=== PATIENT | male | born 1990 | race Two or more races ===

== ENCOUNTER 2024-07-29 20:22 | Emergency (ER) | payer MEDICAID, SELFPAY ==
[2024-07-29 20:23] VITALS: BMI 29.3
--- NOTE | 2024-07-29 20:31 | XR_ITS ---
Examination: PA chest single view TECHNIQUE: Upright PA chest single view Examination date and time: July 29, 2024 1935 hours INDICATIONS: Coughing and fever today FINDINGS: Normal heart size Lungs are clear. The osseous structures are intact IMPRESSION: No active disease
--- NOTE | 2024-07-29 20:52 | EDNOTE_ITS ---
Upper Respiratory Inf. RME/HPI General Chief Complaint: Flu Like Symptoms Stated Complaint: COUGH/ FEVER X 3DAYS Time Seen by Provider: 07/29/24 20:40 Arrival date/time: 07/29/24 20:22 RME / HPI RME / HPI Narrative: This section includes all my notes and documentations, including HPI, PE, and ED course. Rogerio Real MD HPI: 34-year-old male here with about a week history of worsening cough, productive cough, purulent sputum, and dyspnea. No other complaints. ROS: All negative except as documented in HPI. Physical Exam: General: Alert and oriented. Hacking cough noted. Eyes: Conjunctivae and lids clear. ENT: No nasal congestion. Pharynx normal. TM normal bilaterally. Neck: Supple. Heart: RRR. Lungs: No respiratory distress. Good air movement with bilateral rhonchi. Skin: Warm and dry. Neuro: Alert and oriented X 3. I reviewed all diagnostic test results. My interpretation of the chest x-ray is increased bronchial markings. COVID/influenza negative. At this point, diagnoses include low respiratory infection. Treatment here included prednisone and Zithromax and two Tylenol #3. Significant improvement noted. Recommended a trial of outpatient treatment. Based on my best medical judgment, made decision no further evaluation or treatment indicated at this time. Patient understands and agrees to the discharge instructions customized and printed, see below. Discharge instructions from Dr. Real: --No physical exertion for 3 days to help rest the lungs. ?No smoking or exposure to smoking or pets or dust or cold air. --Zithromax to kill the germs causing the bronchitis. --Prednisone to help decrease the swelling in the airways. --Albuterol 2 puffs every 4-6 hours for 3 days to help keep the airways open. Then as needed for cough or shortness of breath. --Tylenol codeine for severe cough for severe pain. --See a private doctor on 08/03/2024 if not completely better. --Seek immediate medical care with worsening or with any concerns. Rogerio Real MD Related Data Previous Rx's ?Medication ?Instructions ?Recorded albuterol sulfate 90 mcg/actuation 2 puff inhalation Q 6HR PRN 11/09/16 aerosol inhaler (ProAir HFA) WHEEZING #1 inh acetaminophen 300 mg-codeine 30 mg 2 tab PO Q8H PRN pa in #20 tabs 07/29/24 tablet albuterol sulfate 90 mcg/actuation 2 puff inhalation Q 6H PRN 07/29/24 aerosol inhaler shortness of breath or wheez ing #8.5 grams azithromycin 500 mg tablet 500 mg PO QDAY 3 days #3 ta bs 07/29/24 (Zithromax TRI-ISIDORO) prednisone 20 mg tablet 40 mg PO BID 3 days #12 tabs 07/29/24 Allergies Allergy/AdvReac Type Severity Reaction Status Date / Time NKA* Allergy Uncoded 11/24/11 15:42 Course Quality Measures none Orders Category Date Time Status Bedside COVID-19 Antigen Test NOW Care 07/29/24 20:31 Completed Bedside Influenza A&B Antigen Test NOW Care 07/29/24 20:31 Completed XR chest 1V portable Stat Exams 07/29/24 20:31 Completed ACETAMINOPHEN w/COD 300-30 [Tylenol w/Cod #3] Med 07/29/24 20:31 Discontinued 2 tab PO X1 ONE Azithromycin Po [Zithromax PO] Med 07/29/24 22:00 Discontinued 500 mg PO X1 ONE predniSONE Med 07/29/24 20:31 Discontinued 60 mg PO X1 ONE Vital Signs Vital signs: Vital Signs Temperature 99.3 F 07/29/24 22:07 Pulse Rate 100 07/29/24 22:07 Respiratory Rate 17 07/29/24 22:07 Blood Pressure 121/67 07/29/24 22:07 Pulse Oximetry (%) 97 07/29/24 22:07 Oxygen Delivery Method Room Air 07/29/24 22:07 Upper Respiratory Infection Patient data External records reviewed:: [facility] previous records Clinical information provided by:: patient Social determinants that could affect healthcare access:: none Patient has the following chronic illnesses:: Asthma How is presenting disease/condition affected by chronic disease/condition?: exacerbated by Evaluation data The following diagnostics were reviewed and interpreted by me:: lab results and radiology exam(s) Lab and/or radiology exams considered but not ordered:: None Interpretation Summary: Lower respiratory infection Medications / Prescriptions Medications or Prescriptions considered but not ordered:: None Medication administrations:: Medication Administration History Discontinued Medications Acetaminophen/Codeine Phosphate (Acetaminophen W/Cod 300-30 Tablet) 2 tab PO X1 ONE Stop: 07/29/24 20:32 Last Admin: 07/29/24 21:01 Dose: 2 tab Documented By: ELIUD Azithromycin (Azithromycin 250 Mg Tablet) 500 mg PO X1 ONE Stop: 07/29/24 22:01 Last Admin: 07/29/24 22:25 Dose: 500 mg Documented By: ELIUD Prednisone (Prednisone 20 Mg Tablet) 60 mg PO X1 ONE Stop: 07/29/24 20:32 Last Admin: 07/29/24 21:02 Dose: 60 mg Documented By: ELIUD Prednisone and Zithromax and two Tylenol #3 Consultations Consultation(s) initiated? (list below): No Diagnosis Upper Respiratory Differential Diagnosis: upper respiratory infection, croup, otitis media, sinusitis, viral infection, bronchitis, influenza and pharyngitis Most likely diagnosis given after review of the tests above:: Lower respiratory infection Admission Indicated Admission indicated?: not indicated Explain why admission is indicated or not indicated:: There was no indication for admission. Admission Request Was there a request for admission?: No Disposition Plan Disposition Plan: Discharge Discharge Attestation Discharge Attestation: The patient and all family members were given an opportunity to ask questions and understood the discharge instructions. Discharge instructions specifically effects, indications for sooner follow up or return to the emergency department, and the expected course of current diagnosis. Patient condition: Stable Discharge Plan Plan Patient Disposition: HOME (Self Care) Prescriptions/Referrals Prescriptions/Med Rec: New prednisone 20 mg tablet 40 mg PO BID 3 Days Qty: 12 0RF Taper: Prednisone Taper 20 mg DAILY for 2 Days and 0 Hour 10 mg DAILY for 2 Days and 0 Hour 5 mg DAILY for 7 Days and 0 Hour acetaminophen-codeine 300-30 mg tablet 2 tab PO Q8H MDD 6 PRN (Reason: pain) Qty: 20 0RF albuterol sulfate 90 mcg/actuation HFA aerosol inhaler 2 puff inhalation Q6H PRN (Reason: shortness of breath or wheezing) Qty: 8.5 0RF azithromycin [Zithromax TRI-ISIDORO] 500 mg tablet 500 mg PO QDAY 3 Days Qty: 3 0RF No Action albuterol sulfate [ProAir HFA] 8.5 GM HFA aerosol inhaler 2 puff Inhalation Q6HR PRN (Reason: WHEEZING) Qty: 1 0RF Referrals: Temporary Provider,ED [Physician] - In 1 week Problem List Clinical Impression: Lower respiratory infection Patient/Caregiver Discharge Instructions Discharge Activity: activity as tolerated Education Materials: ED Bronchitis with Wheezing (Adult) Additional Instructions: Discharge instructions from Dr. Real: --No physical exertion for 3 days to help rest the lungs. ?No smoking or exposure to smoking or pets or dust or cold air. --Zithromax to kill the germs causing the bronchitis. --Prednisone to help decrease the swelling in the airways. --Albuterol 2 puffs every 4-6 hours for 3 days to help keep the airways open. Then as needed for cough or shortness of breath. --Tylenol codeine for severe cough for severe pain. --See a private doctor on 08/03/2024 if not completely better. --Seek immediate medical care with worsening or with any concerns. Instrucciones de madai del Dr. Real: -- No realice esfuerzo f?sico jamel 3 d?as para ayudar a los pulmones a descansar. -- No fume ni se exponga al humo, a las mascotas, al polvo ni al aire fr?o. -- Zitromax para eliminar los g?rmenes que causan la bronquitis. -- Prednisona para ayudar a disminuir la inflamaci?n de las v?as respiratorias. -- Albuterol: 2 inhalaciones cada 4-6 horas jamel 3 d?as para ayudar a mantener las v?as respiratorias abiertas. Posteriormente, seg?n sea necesario, para la tos o la dificultad para respirar. -- Tylenol con code?na para la tos intensa o el dolor intenso. -- Consulte a un m?dico particular el 03/08/2024 si no mejora por completo. -- Busque atenci?n m?dica inmediata si la enfermedad empeora o tiene alguna inquietud. Print Language: Icelandic Stand Alone Forms: Allie Award Info., Patient Portal Info Letter
[2024-07-29] MEDS: ACETAMINOPHEN w/COD 300-30 TABLET 2 TAB PO (21:01)
[2024-07-29] MEDS: predniSONE 20 MG TABLET 60 MG PO (21:02)
[2024-07-29 22:07] VITALS: BP 121/67; PULSE 100; RESP 17; TEMP 37.4; O2SAT 97
[2024-07-29 22:24] VITALS: BP 122/76; PULSE 80; RESP 18; TEMP 37; O2SAT 98
[2024-07-29] MEDS: AZITHROMYCIN 250 MG TABLET 500 MG PO (22:25)
== END 2024-07-29 22:26 | disposition home or self-care (01) ==
PROVIDERS: Emergency Provider Emergency Medicine
DX: J22 Unspecified acute lower respiratory infection (principal)
CPT/HCPCS: 71045; 87400; 87811; 99283; J7512; A9270

== ENCOUNTER 2025-04-09 19:20 | Emergency (ER) | payer SELFPAY ==
[2025-04-09 20:45] VITALS: BP 134/81; PULSE 107; RESP 19; TEMP 37.4; O2SAT 98
--- NOTE | 2025-04-09 21:03 | XR_ITS ---
EXAMINATION: PA chest single view TECHNIQUE: Upright PA chest single view Date and time: April 09, 2025, 2126 hours INDICATIONS: Coughing fever 5 days. FINDINGS: Normal heart size Lungs are clear. Osseous structures intact IMPRESSION: No active disease
[2025-04-09 22:02] LABS: Collection Type, Urine Voided; Squamous Epithelial Cell,Urine 0 /hpf (0-5)
[2025-04-09 22:10] LABS: Bilirubin,Urine Negative (Negative); Blood,Urine Negative (Negative); Clarity,Urine Clear (Clear/Hazy); Color,Urine Lt-Yellow (Lt Yel-Yel); Glucose, Urine Negative (Negative); Ketones,Urine Negative (Negative); Leukocyte Esterase,Urine Negative (Negative); Nitrite,Urine Negative (Negative); PH,Urine 6.0 (5.0-7.0); Protein,Urine Negative (Neg - Trace); RBC,Urine 1 /hpf (0-3); Specific Gravity,Urine 1.025 (1.001-1.035); Urobilinogen,Urine Negative mg/dL (0.0-1.0); WBC,Urine < 1 /hpf (0-5)
[2025-04-09 22:26] LABS: Influenza A Ag Positive; Influenza B Ag Negative; Strep A Rapid Negative (Negative)
[2025-04-09 22:27] LABS: COVID-19 Antigen (In-House) Negative (Negative)
--- NOTE | 2025-04-09 23:20 | PD.EDURI ---
Upper Respiratory Inf. RME/HPI General Chief Complaint: Flu Like Symptoms Stated Complaint: COUGHING,RUNNY NOSE,FEVER Time Seen by Provider: 04/09/25 19:27 Arrival date/time: 04/09/25 19:20 This is a case of 34-year-old male with history of asthma came in in the emergency room due to cough sore throat nasal congestion and fever for 5 days worsening of the symptoms now with shortness of breath and wheezing no chest pain thus patient decided to sought consult here in the emergency room Limitations: no limitations Related Data Previous Rx's ?Medication ?Instructions ?Recorded albuterol sulfate 90 mcg/actuation 2 puff inhalation Q6HR PRN 11/09/16 aerosol inhaler (ProAir HFA) WHEEZING #1 inh acetaminophen 300 mg-codeine 30 mg 2 tab PO Q8H PRN pain #20 tabs 07/29/24 tablet albuterol sulfate 90 mcg/actuation 2 puff inhalation Q6H PRN 07/29/24 aerosol inhaler shortness of breath or wheezing #8.5 grams albuterol sulfate 90 mcg/actuation 1 puff inhalation Q4H PRN 04/09/25 aerosol inhaler (Ventolin HFA) shortness of breath or wheezing #8.5 grams azithromycin 250 mg tablet See Rx Instructions PO .COMPLEX #6 04/09/25 tabs codeine 10 mg-guaifenesin 100 mg/5 5 ml PO Q6H PRN cough #120 mL 04/09/25 mL oral liquid (Guaifenesin AC) prednisone 20 mg tablet See Taper PO QDAY 5 days #5 tabs 04/09/25 Allergies Allergy/AdvReac Type Severity Reaction Status Date / Time No Known Allergies Allergy Verified 04/09/25 19:21 Review of Systems Review of Systems Systems Reviewed: All systems reviewed, normal except as documented Constitutional Constitutional: Reports system reviewed and no additional complaints, except as documented and Reports as per HPI ENT Ears, Nose, Mouth, and Throat: Reports system reviewed and no additional complaints, except as documented and Reports as per HPI Cardiovascular Cardiovascular: Reports system reviewed and no additional complaints, except as documented and Reports as per HPI Respiratory Respiratory: Reports system reviewed and no additional complaints, except as documented and Reports as per HPI Gastrointestinal Gastrointestinal: Reports system reviewed and no additional complaints, except as documented and Reports as per HPI Neurologic Neurologic: Reports system reviewed and no additional complaints, except as documented and Reports as per HPI Past Medical History Past Medical History CARDIAC: Negative Congestive Heart Failure RESPIRATORY: Negative Chronic Obstructive Pulmonary Disease (COPD) GENITOURINARY: Negative Renal Disease ENDOCRINE: Negative Diabetes Mellitus Type 1 or Diabetes Mellitus Type 2 Social History SMOKING STATUS: Never smoker ED Exam General Limitations: Present no limitations General appearance: Present alert, in no apparent distress and other (Patient is awake alert oriented not in distress nontoxic looking well-hydrated well noursihed) Head Head exam: Present atraumatic, normocephalic and normal inspection Eye Eye exam: Present normal appearance, PERRL and EOMI ENT ENT exam: Present normal exam, normal oropharynx, mucous membranes moist and other (Bilateral tonsils swollen red with exudate but no peritonsillar abscess no drooling of saliva no hoarseness of the voice the rest of the HEENT exam is normal ) Neck Neck exam: Present normal inspection, full ROM, trachea midline and other (Negative for meningeal sign); Absent tenderness, meningismus, lymphadenopathy or thyromegaly Chest Chest inspection: Present normal inspection and symmetric chest wall rise; Absent tenderness Respiratory Respiratory exam: Present normal lung sounds bilaterally and wheezes (Wheezing both lower lung field no crackles no rales no retraction no stridor); Absent respiratory distress, stridor, accessory muscle use or prolonged expiratory phase Cardiovascular Cardiovascular exam: Present regular rate, normal rhythm and normal heart sounds; Absent bradycardia, tachycardia, irregular rhythm, systolic murmur or diastolic murmur Abdominal Exam Abdominal exam: Present soft and normal bowel sounds; Absent distention, tenderness, guarding, rebound, rigidity, diminished bowel sounds, hyperactive bowel sounds, hypoactive bowel sounds or organomegaly Extremities Exam Extremities exam: Present normal inspection and full ROM Back Exam Back exam: Present normal inspection and full ROM Neurological Exam Neurological exam: Present alert, oriented X3, CN II-XII intact, normal gait and reflexes normal; Absent motor sensory deficit Psychiatric Psychiatric exam: Present normal affect and normal mood Skin Skin exam: Present warm, dry, intact, normal color and other (Excellent skin turgor) Course Quality Measures none Orders Category Date Time Status XR chest 1V Stat Exams 04/09/25 21:03 Completed COVID-19 Antigen (In-House) Stat Lab 04/09/25 21:50 Completed FLU A&B [Influenza A & B Rapid Panel] Stat Lab 04/09/25 21:50 Completed Strep A Rapid Stat Lab 04/09/25 21:50 Completed Urinalysis Stat Lab 04/09/25 21:50 Completed Albuterol/Ipratr Rt Carol [Duoneb Rt Carol] Med 04/09/25 23:14 Discontinued 3 ml INH X1 ONE Dexamethasone Inj [Decadron Inj] Med 04/09/25 23:14 Discontinued 10 mg IM X1 ONE Ibuprofen Tab [Motrin Tab] Med 04/09/25 23:14 Discontinued 800 mg PO X1 ONE Vital Signs Vital signs: Vital Signs Temperature 99.4 F 04/09/25 20:45 Pulse Rate 107 H 04/09/25 20:45 Respiratory Rate 19 04/09/25 20:45 Blood Pressure 134/81 H 04/09/25 20:45 Pulse Oximetry (%) 98 04/09/25 20:45 Oxygen Delivery Method Room Air 04/09/25 20:45 Oxygen saturation is 98% in room air Upper Respiratory Infection MDM Narrative MDM Narrative:: This is a case of 34-year-old male with history of asthma came in in the emergency room due to cough sore throat nasal congestion and fever for 5 days worsening of the symptoms now with shortness of breath and wheezing no chest pain thus patient decided to sought consult here in the emergency room physical examination patient is awake alert oriented not in distress nontoxic looking well-hydrated well nourished excellent skin turgor vital signs stable BP stable not tachycardic not tachypneic afebrile and nonhypoxic HEENT exam noted to be both tonsils were swollen red with mild exudate but no peritonsillar abscess no drooling of saliva no hoarseness of voice negative for meningeal sign lung sounds wheezing both lower lung field no crackles no rales no retraction no stridor the rest of the physical examination neurological exam is normal and unremarkable patient based on my physical examination and history patient symptoms suggestive of acute exacerbation of asthma thus DuoNeb breathing treatment and dexamethasone was given and x-ray showed no pneumonia patient is positive for flu A unable to give Tamiflu because the symptoms is more than 5 days negative strep negative for COVID urinalysis is also normal no signs and symptoms sepsis dehydration hypoxia no patient request antibiotic treatment since the patient have tonsillitis decided to give Z-Kevin for 5 days patient was also given prednisone and Ventolin inhaler and cough medication patient after breathing treatment steroid patient condition markedly improved patient will follow-up with PCP in 2 days for reevaluation and to be referred to [facility] for asthma exacerbation and for any recurrent persistent worsening symptoms or any emergent concern return precaution in the emergency room immediately or call [phone] Patient was discharged with comfortable condition walking with stable gait. Patient verbalized no further complains explained diagnosis and answered patient question. Patient is comfortable with the proposed management plan including the need to follow up with his/her primary care physician and any specialist if applicable Discussed patient for any urgent condition or worsening sx, He/She needed to go to emergency room immediately or call 911. Patient acknowledge the responsibility to follow up as instructed and to monitor her/his symptoms. For any persistence of the symptoms for more than 3-5 days return precaution advised. Discussed the result of the test and was given printed discharge instruction Patient data External records reviewed:: [facility] previous records Clinical information provided by:: patient Social determinants that could affect healthcare access:: none Patient has the following chronic illnesses:: None How is presenting disease/condition affected by chronic disease/condition?: no chronic disease Evaluation data The following diagnostics were reviewed and interpreted by me:: lab results and radiology exam(s) Lab and/or radiology exams considered but not ordered:: reviewed Interpretation Summary: reviewed Medications / Prescriptions Medications or Prescriptions considered but not ordered:: given Medication administrations:: Medication Administration History Discontinued Medications Albuterol/Ipratropium (Albuterol/Ipratropium (Duoneb) Rt Carol 3 Ml Nebu) 3 ml INH X1 ONE Stop: 04/09/25 23:15 Dexamethasone Sodium Phosphate (Dexamethasone Sod Phos Inj 10 Mg/Ml Vial) 10 mg IM X1 ONE Stop: 04/09/25 23:15 Ibuprofen (Ibuprofen Tab 400 Mg Tablet) 800 mg PO X1 ONE Stop: 04/09/25 23:15 given Consultations Consultation(s) initiated? (list below): No Diagnosis Upper Respiratory Differential Diagnosis: upper respiratory infection, otitis media, sinusitis, viral infection, bronchitis, influenza and pharyngitis Most likely diagnosis given after review of the tests above:: tonsilitis infleunza a Admission Indicated Admission indicated?: not indicated Explain why admission is indicated or not indicated:: not indicated Admission Request Was there a request for admission?: No Admission Attestation Admission request attestation: not indicated Disposition Plan Disposition Plan: Discharge Discharge Attestation Discharge Attestation: The patient and all family members were given an opportunity to ask questions and understood the discharge instructions. Discharge instructions specifically effects, indications for sooner follow up or return to the emergency department, and the expected course of current diagnosis. Patient condition: Stable Discharge Plan Plan Patient Disposition: HOME (Self Care) Patient condition on transfer: Stable Prescriptions/Referrals Prescriptions/Med Rec: New azithromycin 250 mg tablet See Rx Instructions .ROUTE .COMPLEX Qty: 6 0RF Rx Instructions: For 250 mg dose pack: take 500 mg today (day 1), then 250 mg for 4 days (days 2-5) prednisone 20 mg tablet See Taper PO QDAY 5 Days Qty: 5 0RF Taper: Prednisone Taper 20 mg DAILY for 2 Days and 0 Hour 10 mg DAILY for 2 Days and 0 Hour 5 mg DAILY for 7 Days and 0 Hour codeine-guaifenesin [Guaifenesin AC] 10-100 mg/5 mL liquid 5 ml PO Q6H PRN (Reason: cough) Qty: 120 0RF albuterol sulfate [Ventolin HFA] 90 mcg/actuation HFA aerosol inhaler 1 puff inhalation Q4H PRN (Reason: shortness of breath or wheezing) Qty: 8.5 0RF Rx Instructions: Please give No Action albuterol sulfate [ProAir HFA] 8.5 GM HFA aerosol inhaler 2 puff Inhalation Q6HR PRN (Reason: WHEEZING) Qty: 1 0RF acetaminophen-codeine 300-30 mg tablet 2 tab PO Q8H MDD 6 PRN (Reason: pain) Qty: 20 0RF albuterol sulfate 90 mcg/actuation HFA aerosol inhaler 2 puff inhalation Q6H PRN (Reason: shortness of breath or wheezing) Qty: 8.5 0RF Referrals: No Primary/Family,Physician [Primary Care Provider] - In 1 week Problem List Clinical Impression: Fever, Asthma exacerbation, mild, Influenza A, Acute tonsillitis Patient/Caregiver Discharge Instructions Education Materials: Tonsillitis in Adults, ED FUO Adult, ED Influenza (Adult), Asthma Additional Instructions: Follow-up with your primary care physician in 2 days for reevaluation and to be referred to [facility] for recurrent asthma exacerbation regarding persistent worsening symptoms or any emergent concern call 911 or go to the nearest emergency room take your medication as directed finish the course of antibiotic increase water intake keep hydrated Pedialyte or hydration is advised warm saline gargle is advised Print Language: Malay Stand Alone Forms: Allie Award Info., Patient Portal Info Letter PA/KINDERGARTEN ASSISTANT Supervising Physician PA/KINDERGARTEN ASSISTANT Supervising Physician: Dr Montez Stevens
[2025-04-09] MEDS: ALBUTEROL/IPRATROPIUM (Duoneb) RT SOL 3 ML NEBU INH (23:33)
[2025-04-09 23:34] VITALS: PULSE 99; RESP 20; O2SAT 100
[2025-04-09] MEDS: IBUPROFEN TAB 400 MG TABLET 800 MG PO (23:58)
[2025-04-09] MEDS: DEXAMETHASONE SOD PHOS INJ 10 MG/ML VIAL IM (23:59)
[2025-04-10 00:12] VITALS: RESP 16
== END 2025-04-10 00:12 | disposition home or self-care (01) ==
PROVIDERS: Nurse Practitioner Family; Emergency Provider Emergency Medicine
DX: J45.901 Unspecified asthma with (acute) exacerbation (principal); J10.1 Influenza due to other identified influenza virus with other respiratory manifestations
CPT/HCPCS: 71045; 81001; 87502; 87651; 87811; 94640; 96372; 99284; A9270; J1100